=== PATIENT | male | born 1990 | race Caucasian/White ===

== ENCOUNTER 2016-03-12 06:06 | Emergency (ER) | payer OTHER ==
[2016-03-12 06:31] VITALS: BMI 33.2
--- NOTE | 2016-03-12 07:46 | PDOC ---
History of Present Illness - General History Source: Patient Exam Limitations: No Limitations - History of Present Illness Initial Comments: CHIEF COMPLAINT: 25 y/o afebrile male with no significant PMH c/o painful boil to scrotum x 2 days. HISTORY OF PRESENT ILLNESS: The patient states this is the 4th time he's had a boil on his scrotum. Normally he "pops" them himself but thinks he may need antibiotics. His only sexual partner is with him and states she is susceptible to boils and has had MRSA in the past. The patient denies f/c, n/v/d, testicular elevation/redness/swelling, abnormal penile discharge, painful urination. Vital signs on arrival are within normal limits. REVIEW OF SYSTEMS: GENERAL/CONSTITUTIONAL: No fever/chills. No weakness. No weight change. HEAD, EYES, EARS, NOSE AND THROAT: No change in vision. No ear pain or discharge. No sore throat. CARDIOVASCULAR: No chest pain or shortness of breath. RESPIRATORY: No cough, wheezing, or hemoptysis. GASTROINTESTINAL: No abd pain, nausea, vomiting, diarrhea. GENITOURINARY: No dysuria, frequency, or change in urination. MUSCULOSKELETAL: No joint or muscle swelling or pain. No neck or back pain. SKIN: +painful boil to scrotum NEUROLOGIC: No headache, vertigo, loss of consciousness, or loss of sensation. PHYSICAL EXAM: GENERAL: The patient is awake, alert, and fully oriented, in no acute distress. HEAD: Normal with no signs of trauma. EYES: Pupils equal, round and reactive to light, extraocular movements intact, sclera anicteric, conjunctiva clear. EXTREMITIES: Normal range of motion, no edema. NEUROLOGICAL: Normal speech, normal gait. PSYCH: Normal mood, normal affect. GENITALS: No testicular swelling, erythema, warmth, elevation. SKIN: 2cm indurated area of perineum that is TTP. No streaking. <Genoveva Pantoja - Last Filed: 03/12/16 07:23> <Samantha Hanson - Last Filed: 03/12/16 16:16> - General Chief Complaint: Wound Stated Complaint: WOUND IN GENITLE AREA Time Seen by Provider: 03/12/16 07:16 Past History - Psycho/Social/Smoking Cessation Hx Suicidal Ideation: No Smoking History: Never smoked Have you smoked in the past 12 months: No Information on smoking cessation initiated: No Hx Alcohol Use: No Drug/Substance Use Hx: No <Genoveva Pantoja - Last Filed: 03/12/16 07:23> <Samantha Hanson - Last Filed: 03/12/16 16:16> - Past Medical History Allergies/Adverse Reactions: Allergies Allergy/AdvReac Type Severity Reaction Status Date / Time No Known Allergies Allergy Verified 03/12/16 06:29 Home Medications: Ambulatory Orders Amox-Tr/K Cl [Augmentin - 875Mg Tablet] 1 tab PO BID #20 tablet 03/12/16 *Physical Exam - Vital Signs Last Vital Signs Temp Pulse Resp BP Pulse Ox 98.0 F 84 14 119/57 100 03/12/16 06:29 03/12/16 06:29 03/12/16 06:29 03/12/16 06:29 03/12/16 06:29 <Genoveva Pantoja - Last Filed: 03/12/16 07:23> - Vital Signs Last Vital Signs Temp Pulse Resp BP Pulse Ox 98.1 F 81 17 114/58 100 03/12/16 08:17 03/12/16 08:17 03/12/16 08:17 03/12/16 08:17 03/12/16 08:17 <Samantha Hanson - Last Filed: 03/12/16 16:16> ED Treatment Course - Medications Given in the ED: ED Medications Discontinued Medications Generic Name Dose Route Start Last Admin Trade Name Freq PRN Reason Stop Dose Admin Amoxicillin/Clavulanate Potassium 1 tab 03/12/16 07:51 03/12/16 08:17 Augmentin - 875mg Tablet PO 03/12/16 07:52 1 tab ONCE ONE Administration <Samantha Hanson - Last Filed: 03/12/16 16:16> Medical Decision Making - Medical Decision Making A/P: 25 y/o afebrile male with indurated boil to perineum. Plan is to discharge to home with rx for augmentin and provide PCP referral. Pt instructed to apply hot compresses and take entire course of antibiotics. He was instructed to f/u with PCP within 1 week. The patient verbalizes understanding of all instructions, has no further questions and is awaiting discharge. <Genoveva Pantoja - Last Filed: 03/12/16 07:23> *DC/Admit/Observation/Transfer <Genoveva Pantoja - Last Filed: 03/12/16 07:23> - Attestations Physician Attestion: I reviewed the case with the mid-level practitioner and agree with the mid- level practitioner's assessment, diagnosis and disposition. <Samantha Hanson - Last Filed: 03/12/16 16:16> Diagnosis at time of Disposition: Boil - Discharge Dispostion Disposition: HOME Condition at time of disposition: Good - Prescriptions Prescriptions: Amox-Tr/K Cl [Augmentin - 875Mg Tablet] 1 tab PO BID #20 tablet - Referrals Referrals: Sameer Powell MD [Staff Physician] - - Patient Instructions Printed Discharge Instructions: DI for Boils Additional Instructions: Discharge Instructions: -Take entire course of antibiotics -Apply hot compresses to affected area -Follow up with Dr. Powell within 1 week -Return to the ER with any worsening or concerning symptoms. Print Language: LITHUANIAN
[2016-03-12] MEDS ORDERED: AMOX TR/POT CLAV 875MG/125MG TABLETS (FP) PO ONE (07:51)
[2016-03-12] MEDS ORDERED: AMOX TR/POT CLAV 875MG/125MG TABLETS (FP) ONE (08:06)
[2016-03-12 08:18] VITALS: BP 114/58; PULSE 81; TEMP 98.1
== END 2016-03-12 08:18 | disposition home or self-care (01) ==
LOC: JER 06:06
DX: L02.225 Furuncle of perineum (principal)
CPT/HCPCS: 99282-25

== ENCOUNTER 2017-10-17 00:25 | Emergency (ER) | payer OTHER ==
[2017-10-17 01:07] VITALS: BP 151/69; PULSE 60; TEMP 98.7; BMI 34.8
[2017-10-17] MEDS ORDERED: KETOROLAC TROMETHAMINE 60 MG/2 ML VIAL IM ONE (02:09)
[2017-10-17] MEDS ORDERED: KETOROLAC TROMETHAMINE 60 MG/2 ML VIAL ONE (02:13)
--- NOTE | 2017-10-17 02:16 | PDOC ---
History of Present Illness - General Chief Complaint: Back Pain Stated Complaint: BACK PAIN Time Seen by Provider: 10/17/17 01:45 History Source: Patient Exam Limitations: Language Barrier (IPXI sheet turner was used for this interaction) - History of Present Illness Initial Comments: 10/17/17 02:16 27-year-old male with 4 days of right side lower back pain to right buttocks reports that pain is more severe today. Patient took diclofenac early in the morning with no relief in pain. Denies trauma/injury, numbness and tingling to the lower extremity, incontinence of bowel or urine. Pain worse with movement. Patient has no past medical history Past History - Past Medical History Allergies/Adverse Reactions: Allergies Allergy/AdvReac Type Severity Reaction Status Date / Time No Known Allergies Allergy Verified 10/17/17 01:01 Home Medications: Ambulatory Orders Amoxicillin - [Amoxicillin 500mg Capsule -] 500 mg PO BID #14 capsule 07/08/16 Cyclobenzaprine HCl [Flexeril -] 10 mg PO TID PRN #10 tablet 10/17/17 Ibuprofen 800 mg PO QID PRN #20 tablet 10/17/17 COPD: No - Suicide/Smoking/Psychosocial Hx Smoking History: Never smoked Have you smoked in the past 12 months: No Hx Alcohol Use: No Drug/Substance Use Hx: No Review of Systems - Review of Systems Able to Perform ROS?: Yes Is the patient limited Maori proficient: No Constitutional: No: Symptoms Reported, See HPI, Chills, Diaphoresis, Fever, Loss of Appetite, Malaise, Night Sweats, Weakness, Weight Stable, Unintentional Wgt. Loss, Unexplained wgt Loss, Other ABD/GI: No: Symptoms Reported, See HPI, Abdominal Distended, Abd. Pain w/ defecation, Blood Streaked Bowels, Constipated, Diarrhea, Difficulty Swallowing , Nausea, Poor Appetite, Poor Fluid Intake, Rectal Bleeding, Vomiting, Indigestion, Abdominal cramping, Tarry Stools, Other Musculoskeletal: Yes: Back Pain. No: Symptoms Reported, See HPI, Gout, Joint Pain, Joint Swelling, Muscle Pain, Muscle Weakness, Neck Pain, Joint Stiffness, Other *Physical Exam - Vital Signs Last Vital Signs Temp Pulse Resp BP Pulse Ox 98.7 F 60 18 151/69 99 10/17/17 01:01 10/17/17 01:10/17/17 01:10/17/17 01:10/17/17 01:10/17/17 02:26 R - Physical Exam General Appearance: Yes: Appropriately Dressed Gastrointestinal/Abdominal: positive: Normal Bowel Sounds, Soft Musculoskeletal: positive: Normal Inspection, Muscle Spasm (right lower back and buttocks. ). negative: CVA Tenderness, Vertebral Tenderness Extremity: positive: Normal Capillary Refill Integumentary: positive: Normal Color, Dry, Warm Neurologic: positive: Fully Oriented, Alert, Normal Mood/Affect *DC/Admit/Observation/Transfer Diagnosis at time of Disposition: Musculoskeletal back pain - Discharge Dispostion Disposition: HOME - Prescriptions Prescriptions: Cyclobenzaprine HCl [Flexeril -] 10 mg PO TID PRN #10 tablet PRN Reason: Muscle Spasms Ibuprofen 800 mg PO QID PRN #20 tablet PRN Reason: Back Pain - Referrals Referrals: Nick Prabhakar MD [Staff Physician] - - Patient Instructions Printed Discharge Instructions: Muscle Strain Additional Instructions: Apply ice or heat to the area Take ibuprofen every 6 hours as needed for for pain Take Flexeril 3 times a day as prescribed. Do not drive or operate heavy machinery after taking the medication. Please follow up with a primary care physician as soon as possible. - Post Discharge Activity Forms/Work/School Notes: Back to Work
--- NOTE | 2017-10-17 02:37 | PDOC ---
*Physical Exam - Vital Signs Last Vital Signs Temp Pulse Resp BP Pulse Ox 98.7 F 60 18 151/69 99 10/17/17 01:01 10/17/17 01:01 10/17/17 01:01 10/17/17 01:01 10/17/17 01:01 ED Treatment Course - Medications Given in the ED: ED Medications Discontinued Medications Generic Name Dose Route Start Last Admin Trade Name Freq PRN Reason Stop Dose Admin Ketorolac Tromethamine 60 mg 10/17/17 02:09 10/17/17 02:20 Toradol Injection - IM 10/17/17 02:10 60 mg ONCE ONE Administration Medical Decision Making - Medical Decision Making 10/17/17 02:37 agree with care from RHINA Odonnell *DC/Admit/Observation/Transfer Diagnosis at time of Disposition: Musculoskeletal back pain - Discharge Dispostion Disposition: HOME - Prescriptions Prescriptions: Cyclobenzaprine HCl [Flexeril -] 10 mg PO TID PRN #10 tablet PRN Reason: Muscle Spasms Ibuprofen 800 mg PO QID PRN #20 tablet PRN Reason: Back Pain - Referrals Referrals: Nick Prabhakar MD [Staff Physician] - - Patient Instructions Printed Discharge Instructions: Muscle Strain Additional Instructions: Apply ice or heat to the area Take ibuprofen every 6 hours as needed for for pain Take Flexeril 3 times a day as prescribed. Do not drive or operate heavy machinery after taking the medication. Please follow up with a primary care physician as soon as possible. - Post Discharge Activity Forms/Work/School Notes: Back to Work
== END 2017-10-17 03:19 | disposition home or self-care (01) ==
LOC: JER 00:25
PROC: 3E0233Z Introduction of Anti-inflammatory into Muscle, Percutaneous Approach (ICD-10-PCS; principal; 2017-10-17)
DX: M54.89 Other dorsalgia (principal)
CPT/HCPCS: 99282-25

== ENCOUNTER 2017-11-09 22:32 | Emergency (ER) | payer OTHER ==
[2017-11-09 22:39] VITALS: BP 143/72; PULSE 111; TEMP 98.3; BMI 35.2
[2017-11-09] MEDS ORDERED: KETOROLAC TROMETHAMINE 30 MG/1 ML VIAL IM ONE (23:59)
[2017-11-09] MEDS ORDERED: diazePAM 5 MG TABLET PO ONE (23:59)
--- NOTE | 2017-11-10 00:06 | PDOC ---
History of Present Illness <Beverly Mejia - Last Filed: 11/09/17 23:59> - General History Source: Patient, Old Records Exam Limitations: No Limitations - History of Present Illness Initial Comments: 11/10/17 00:47 Patient is a 27 year old male with significant past medical history who presents to the ED with complaints of lower back pain that began x1 month ago. Patient reports experiencing right sided lower back pain that he states has gradually increased in intensity. He reports right sided lumbar pain has began to radiate down to his right thigh, prompting him to come into the ED for further evaluation. He reports experiencing associated symptoms of increased throat pain, fevers, and chills. Patient reports experiencing decreased appetite and decreased drinking secondary to throat pain. He reports coming into the ED x3 weeks ago with similar complaints, stating he was examined, prescribed muscle relaxers and motrin with no relief. Denies chest pain, Sob. Denies nausea, vomiting. Denies contact with sick individuals, out of state travelling. Denies dysuria, hematuria. Denies diarrhea , constipation. Denies trauma to affected area. Denies any other symptoms. Allergies: None Social history: No smoking. No alcohol. No illicit drugs. Surgical history: None PMD: None <Jose Francisco Diallo - Last Filed: 11/10/17 00:47> - General Chief Complaint: Back Pain Stated Complaint: BACK PAIN/SWOLLEN TONSILS Time Seen by Provider: 11/09/17 23:35 Past History - Past Medical History COPD: No - Immunization History Immunization Up to Date: Yes - Suicide/Smoking/Psychosocial Hx Smoking History: Never smoked Have you smoked in the past 12 months: No Information on smoking cessation initiated: No Hx Alcohol Use: No Drug/Substance Use Hx: No Substance Use Type: None <Beverly Mejia - Last Filed: 11/09/17 23:59> <Jose Francisco Diallo - Last Filed: 11/10/17 00:47> - Past Medical History Allergies/Adverse Reactions: Allergies Allergy/AdvReac Type Severity Reaction Status Date / Time No Known Allergies Allergy Verified 11/09/17 22:39 Home Medications: Ambulatory Orders Diazepam [Valium] 5 mg PO Q8H PRN #10 tablet MDD 3 11/10/17 Fluticasone Prop 0.05% Nasal [Flonase -] 1 spray NS DAILY #1 bot MDD 1 11/10/17 Ibuprofen [Motrin -] 600 mg PO TID PRN #90 tablet MDD 3 11/10/17 Review of Systems - Review of Systems Able to Perform ROS?: Yes Comments:: 11/10/17 00:47 GENERAL/CONSTITUTIONAL: +Fever. +Chills. No weakness. HEAD, EYES, EARS, NOSE AND THROAT: +Sore throat. +Neck pain. No change in vision. No ear pain or discharge. No sore throat. GASTROINTESTINAL: No nausea, vomiting, diarrhea or constipation. GENITOURINARY: No dysuria, frequency, or change in urination. CARDIOVASCULAR: No chest pain or shortness of breath. RESPIRATORY: No cough, wheezing, or hemoptysis. MUSCULOSKELETAL: +Bilateral lower back pain. No joint or muscle swelling or pain. No neck or back pain. SKIN: No rash NEUROLOGIC: No headache, vertigo, loss of consciousness, or change in strength/ sensation. ENDOCRINE: No increased thirst. No abnormal weight change. HEMATOLOGIC/LYMPHATIC: No anemia, easy bleeding, or history of blood clots. ALLERGIC/IMMUNOLOGIC: No hives or skin allergy. All Other Systems: Reviewed and Negative <Jose Francisco Diallo - Last Filed: 11/10/17 00:47> *Physical Exam - Vital Signs Last Vital Signs Temp Pulse Resp BP Pulse Ox 98.3 F 111 H 20 143/72 99 11/09/17 22:36 11/09/17 22:36 11/09/17 22:36 11/09/17 22:36 11/09/17 22:36 <Beverly Mejia - Last Filed: 11/09/17 23:59> - Vital Signs Last Vital Signs Temp Pulse Resp BP Pulse Ox 98.3 F 111 H 20 143/72 99 11/09/17 22:36 11/09/17 22:36 11/09/17 22:36 11/09/17 22:36 11/09/17 22:36 - Physical Exam Comments: 11/10/17 00:47 GENERAL: Awake, alert, and fully oriented, in no acute distress HEAD: No signs of trauma EYES: PERRLA, EOMI, sclera anicteric, conjunctiva clear ENT: +Bilateral tonsillar concretions. +Mild erythema. +Cobblestoning in posterior oropharynx. Auricles normal inspection, nares patent, Moist mucosa NECK: Normal ROM, supple, no lymphadenopathy, JVD, or masses LUNGS: Breath sounds equal, clear to auscultation bilaterally. No wheezes, and no crackles HEART: Regular rate and rhythm, normal S1 and S2, no murmurs, rubs or gallops ABDOMEN: Soft, nontender, normoactive bowel sounds. No guarding, no rebound. No masses MUSCULOSKELETAL: No Midline vertebral body tenderness. EXTREMITIES: +5/5 strength in lower extremities. +Positive right straight leg test. +Lumbosacral muscle spasm. No numbness or weakness. Normal range of motion, no edema. No clubbing or cyanosis. No cords, erythema, or tenderness NEUROLOGICAL: +Sensations intact. Normal speech SKIN: Warm, Dry, normal turgor, no rashes or lesions noted. <Jose Francisco Diallo - Last Filed: 11/10/17 00:47> ED Treatment Course - Medications Given in the ED: ED Medications Discontinued Medications Generic Name Dose Route Start Last Admin Trade Name Jonh PRN Reason Stop Dose Admin Diazepam 5 mg 11/09/17 23:59 11/10/17 00:17 Valium - PO 11/10/17 00:00 5 mg ONCE ONE Administration Ketorolac Tromethamine 30 mg 11/09/17 23:59 11/10/17 00:17 Toradol Injection - IM 11/10/17 00:00 30 mg ONCE ONE Administration <Jose Francisco Diallo - Last Filed: 11/10/17 00:47> Medical Decision Making - Medical Decision Making 11/10/17 00:00 27 yo male with h/o low back injury worse with bending. has had for one month. has been seen for similar in the past. no new weakness or numbness. post nasal drip and sore throat. nomral nuero exam. plan nsaids, muscle relaxers. flonase, ent and nuerology followup. <Beverly Mejia - Last Filed: 11/09/17 23:59> *DC/Admit/Observation/Transfer - Discharge Dispostion Decision to Admit order: No <Beverly Mejia - Last Filed: 11/09/17 23:59> - Attestations Scribe Attestion: 11/10/17 00:47 Documentation prepared by Jose Francisco Diallo, acting as medical technicians for Beverly Mejia MD. <Jose Francisco Diallo - Last Filed: 11/10/17 00:47> Diagnosis at time of Disposition: Low back strain, Post-nasal drip - Discharge Dispostion Disposition: HOME Condition at time of disposition: Improved - Prescriptions Prescriptions: Diazepam [Valium] 5 mg PO Q8H PRN #10 tablet MDD 3 PRN Reason: Muscle Spasms Fluticasone Prop 0.05% Nasal [Flonase -] 1 spray NS DAILY #1 bot MDD 1 Ibuprofen [Motrin -] 600 mg PO TID PRN #90 tablet MDD 3 PRN Reason: Pain - Referrals Referrals: Oc Cotter MD [Staff Physician] - Julián Hamm MD [Staff Physician] - - Patient Instructions Printed Discharge Instructions: Back Pain (Alternative Therapy), Sinusitis, Allergic Rhinitis Additional Instructions: you should use flonase spray each nostril daily. follow up [facility] dr. Cotter ear nose and throat. call to schedule. you should also follow up with nuerology. return for any problems or concerns. you can take motrin =600 mg every 8 hrs as needed for pain. take valium 5 mg every 8 hrs as needed for muscle spasm. do not drive after taking, and do not mix with alcohol as it can make you drowsy.
[2017-11-10] MEDS ORDERED: diazePAM 5 MG TABLET ONE (00:10)
[2017-11-10] MEDS ORDERED: KETOROLAC TROMETHAMINE 30 MG/1 ML VIAL ONE (00:11)
== END 2017-11-10 00:46 | disposition home or self-care (01) ==
LOC: JER 22:32
PROC: 3E0233Z Introduction of Anti-inflammatory into Muscle, Percutaneous Approach (ICD-10-PCS; principal; 2017-11-09)
DX: S39.012A Strain of muscle, fascia and tendon of lower back, initial encounter (principal); X58.XXXA Exposure to other specified factors, initial encounter; Y93.89 Activity, other specified; Y92.89 Other specified places as the place of occurrence of the external cause; R09.82 Postnasal drip
CPT/HCPCS: 96372; 99281-25; 99282-25